=== PATIENT | male | born 1970 | race Caucasian/White ===

== ENCOUNTER 2021-06-20 14:45 | Emergency (ER) | payer MEDICAID ==
[~2021-06-20] VITALS: Ht 152.4 cm; Wt 114.0 kg
[~2021-06-20 14:45] MED LIST: LOSA25TA26 PO; SIMV-43 PO
[2021-06-20] MEDS ORDERED: HYDROCODONE/ACETAMINOPHEN 5/325MG TABLET PO ONE (16:15)
[2021-06-20] MEDS ORDERED: IBUP-2029 MT (16:46)
[2021-06-20] MEDS ORDERED: HYDR-4001 MT (16:46)
[2021-06-20 16:56] VITALS: BP 166/99
== END 2021-06-20 17:21 | disposition home or self-care (01) ==
LOC: ER 14:55
DX: S80.01XA Contusion of right knee, initial encounter (principal); I25.2 Old myocardial infarction; I11.9 Hypertensive heart disease without heart failure; W17.89XA Other fall from one level to another, initial encounter; Y93.89 Activity, other specified; Y92.812 Truck as the place of occurrence of the external cause
CPT/HCPCS: 73562; 99283; L1830

== ENCOUNTER 2023-03-23 08:19 | Emergency (ER) | payer MEDICAID, OTHER ==
[~2023-03-23] VITALS: Ht 172.7 cm; Wt 104.0 kg
[~2023-03-23 08:19] MED LIST changes: +HYDR-4001 MT; +IBUP-2029 MT
[2023-03-23 08:30] VITALS: O2SAT 98
[2023-03-23] MEDS ORDERED: KETOROLAC 60MG/2ML VIAL IM ONE (09:15)
[2023-03-23] MEDS ORDERED: KETO10TA2 MT (12:12)
[2023-03-23 12:37] VITALS: BP 128/61; PULSE 96; RESP 20; TEMP 97.9
== END 2023-03-23 12:38 | disposition home or self-care (01) ==
LOC: ER 08:19
DX: M25.551 Pain in right hip (principal); E11.9 Type 2 diabetes mellitus without complications; I25.2 Old myocardial infarction; I11.9 Hypertensive heart disease without heart failure
CPT/HCPCS: 99283; 73502; 96372; J1885